=== PATIENT | female | born 1975 ===

== ENCOUNTER 2022-02-06 14:19 | Inpatient (IN) | payer SELFPAY ==
[2022-02-06] MEDS ORDERED: ONDANSETRON 4 MG/2 ML INJ IV ONE (16:10)
[2022-02-06] MEDS ORDERED: ACETAMINOPHEN 325 MG TAB PO ONE (16:10)
[2022-02-06] MEDS ORDERED: SODIUM CHLORIDE 0.9% 1000 ML 1,000 ML IV ONE (16:10)
--- NOTE | 2022-02-06 16:15 | Emergency Department Report ---
Chief Complaint: Abdominal Pain Stated Complaint: FEVER/VOMITTING/CHILLS Time Seen by Provider: 02/06/22 16:13 - HPI History of Present Illness: Few day history of worsening fever, chills, abdominal pain. - ROS Review of Systems: Complains of abdominal pain, body aches, fever, chills. - Exam Vital Signs: Vital Signs 02/06/22 16:08 Temperature 103.5 F H Pulse Rate 125 H Respiratory 22 Rate Blood Pressure 166/85 [Right] O2 Sat by Pulse 99 Oximetry Physical Exam: Abdominal tenderness to palpation. MSE screening note: Focused history and physical exam performed. Due to findings the following was ordered: CBC, CMP, lipase, UA, CT abdomen chest with contrast. 975 mg of Tylenol Patient to be seen by another provider when she gets a room. ED Disposition for MSE Condition: Stable Instructions: Abdominal Pain (ED)
[2022-02-06 16:49] LABS: Hematocrit 28.9 % (30.3-42.9); Hemoglobin 9.6 gm/dl (10.1-14.3); Mean Corpuscular HGB Conc 33 % (30-34); Mean Corpuscular Volume 96 fl (79-97); Platelet Count 211 K/mm3 (140-440); Red Cell Distribution Width 15.8 % (13.2-15.2)
[2022-02-06 17:38] LABS: Alanine Aminotransferase 153 units/L (7-56); Albumin 3.4 g/dL (3.9-5); Blood Urea Nitrogen 5 mg/dL (7-17); Calcium 8.6 mg/dL (8.4-10.2); Hemolysis Index 8
[2022-02-06 17:41] LABS: BUN/Creatinine Ratio 8
--- NOTE | 2022-02-06 22:02 | Cat Scan Report ---
CT abdomen pelvis w con INDICATION / CLINICAL INFORMATION: Pt complains of severe abdominal pain.. TECHNIQUE: Axial CT images were obtained through the abdomen and pelvis after 100 cc of Omnipaque [address] scans at this location are performed using CT dose reduction for ALARA by means of automated exposure control. COMPARISON: None available. FINDINGS: There is bibasilar volume loss. Severe hepatic steatosis with hepatomegaly, measuring 26.5 cm. No foc al hepatic lesion. Gallbladder and bile ducts are unremarkable. The parenchyma of the pancreas is dim inutive. Large peripancreatic fluid collections, largest associated with the body and tail the pancreas measur ing 16.2 x 9.5 cm transaxially. This extends along the left paracolic gutter with component in the le ft lower abdomen measuring 10.6 x 10.3 cm transaxially (series 2 image 119). Overall, this measures 2 2.7 cm in craniocaudal dimension. There is additional peripancreatic collection at the head of the pa ncreas, measuring 10.4 x 4.6 cm transaxially with component extending along the right paracolic gutte r with component measuring 8.5 x 7.3 cm transaxially in the right abdomen (series 2 image 120). There is moderate volume free fluid within the pelvis, though this does not appear to be well encapsulated . There is focal narrowing at the portal vein confluence. The portal vein and remaining SMV are paten t. Splenic vein is not well seen, though also appears to be patent. Spleen is unremarkable. Adrenal g lands are unremarkable. No acute renal abnormality. No hydronephrosis. Bladder is unremarkable. Uterus/adnexa are appropriate for age. Stomach is unremarkable. Small bowel and colon demonstrate no evidence of mechanical obstruction or i nflammation. No acute osseous findings. IMPRESSION: 1. Large peripherally enhancing fluid collections with dominant collection surrounding the pancreas b tiara and tail and extending along left paracolic gutter with additional large collection involving the pancreatic head and extending along the right paracolic gutter, as above. These findings are favored to reflect large peripancreatic pseudocysts or acute peripancreatic collections. Sterility of this f inding is indeterminate. Recommend further evaluation with GI consultation. 2. Severe hepatic steatosis with hepatomegaly. 3. Other incidental findings as above. Findings were discussed with Dr. Pfeiffer by phone on 02/06/2022 at 8:57 PM Signer Name: Luis Spencer MD Signed: 02/06/2022 9:58 PM Workstation Name: [id number]
[2022-02-06] MEDS ORDERED: cefTRIAXone/NS 1 GM/50 ML 1 GM/50 ML BAG IV ONE (22:06)
[2022-02-06] MEDS ORDERED: SODIUM CHLORIDE 0.9% 1000 ML IV SOLN IV ONE (22:06)
[2022-02-06] MEDS ORDERED: ONDANSETRON 4 MG/2 ML INJ ONE (23:13)
--- NOTE | 2022-02-06 23:25 | XRay Report ---
XR chest 1V ap INDICATION / CLINICAL INFORMATION: Pain. COMPARISON: Same-day CT FINDINGS: SUPPORT DEVICES: None. HEART /PULMONARY VASCULATURE: No significant abnormality. LUNGS / PLEURA: Diminished lung volumes with streaky perihilar and bibasilar pulmonary opacities, lik chapo reflecting atelectasis. No sizable pleural effusion. No pneumothorax. ADDITIONAL FINDINGS: No significant additional findings. IMPRESSION: Diminished lung volumes with bibasilar atelectasis. No acute findings. Signer Name: Luis Spencer MD Signed: 02/06/2022 11:20 PM Workstation Name: [id number]
[2022-02-07 00:11] LABS: Bilirubin,Urine Negative (Negative); Blood,Urine Negative (Negative); Color,Urine Yellow (Yellow); Urobilinogen,Urine < 2.0 mg/dL (<2.0)
[2022-02-07] MEDS ORDERED: MORPHINE 4 MG/1 ML INJ IV PRN (01:21)
[2022-02-07] MEDS ORDERED: IBUPROFEN 600 MG TAB PO PRN (01:21)
[2022-02-07] MEDS ORDERED: MAGNESIUM HYDROXIDE (MOM) ORAL LIQD UDC PO PRN (01:21)
[2022-02-07] MEDS ORDERED: ONDANSETRON 4 MG/2 ML INJ IV PRN (01:21)
[2022-02-07] MEDS ORDERED: MORPHINE 2 MG/1 ML INJ IV PRN (01:21)
--- NOTE | 2022-02-07 01:30 | History and Physical Report ---
History of Present Illness Date of examination: 02/07/22 Date of admission: 02/07/2022 Chief complaint: Abdominal pain History of present illness: 46-year-old female with past medical history of hypertension, diabetes mellitus, pancreatitis and history of breast cancer in the past presenting to the emergency room today complaining of fever, nausea and vomiting with associated abdominal pain. Symptoms have been ongoing for the past 2 to 3 days. She denies any chest pain or shortness of breath, denies any headache or dizziness and denies any diaphoresis. Patient denies any bright red blood per rectum, no hematuria or dysuria. She denies any sick contacts and no recent travel. Upon arrival in the emergency room patient had a fever 103.5 F. Work-up in the emergency room, labs significant for elevated liver enzymes with AST of 542 and ALT of 153. 562. Urinalysis was unremarkable. Acute hepatitis profile so far negative. Chest x-ray reveals diminished lung volumes with bibasilar atelectasis. CT of the abdomen and pelvis however reveals: 1. Large peripherally enhancing fluid collections with dominant collection surrounding the pancreas body and tail and extending along left paracolic gutter with additional large collection involving the pancreatic head and extending along the right paracolic gutter, as above. These findings are favored to reflect large peripancreatic pseudocysts or acute peripancreatic collections. Sterility of this finding is indeterminate. Recommend further evaluation with GI consultation. 2. Severe hepatic steatosis with hepatomegaly. 3. Other incidental findings as above. Social Worker Masters on-call Dr. Guzman has been consulted by the ER physician regarding the above findings. Recommendation is to place patient on empiric IV antibiotics and patient will be reevaluated in the a.m. It would later be determined whether patient may need surgical intervention. Medications and Allergies Allergies Allergy/AdvReac Type Severity Reaction Status Date / Time No Known Allergies Allergy Verified 02/06/22 16:12 Review of Systems Constitutional: fever, chills Ears, nose, mouth and throat: no nasal congestion, no sore throat Cardiovascular: no chest pain, no palpitations Respiratory: no cough, no shortness of breath Gastrointestinal: abdominal pain, nausea, vomiting, no diarrhea, no melena Genitourinary Female: no flank pain, no dysuria, no hematuria Musculoskeletal: no neck pain, no low back pain Integumentary: no rash, no pruritis Neurological: no headaches, no confusion Psychiatric: no anxiety, no depression Endocrine: no polyphagia, no polydipsia, no polyuria Exam - Constitutional Vitals: Temp Pulse Resp BP Pulse Ox 102.0 F H 109 H 19 110/63 93 02/07/22 01:26 02/07/22 00:46 02/07/22 00:46 02/07/22 00:46 02/07/22 00:46 HEART Score - HEART Score Troponin: Troponin T < 0.010 ng/mL (0.00-0.029) 02/06/22 23:21 Results - Labs CBC & Chem 7: 02/06/22 16:33 02/06/22 16:33 Labs: Abnormal lab results 02/06/22 02/06/22 02/06/22 Range/Units 16:33 16:33 23:21 RBC 3.00 L (3.65-5.03) M/mm3 Hgb 9.6 L (10.1-14.3) gm/dl Hct 28.9 L (30.3-42.9) % RDW 15.8 H (13.2-15.2) % Sodium 135 L (137-145) mmol/L Potassium 3.1 L (3.6-5.0) mmol/L BUN 5 L (7-17) mg/dL Glucose 124 H (65-100) mg/dL AST 542 H (5-40) units/L ALT 153 H (7-56) units/L Alkaline Phosphatase 562 H (35-129) units/L Total Creatine Kinase (30-135) units/L NT-Pro-B Natriuret Pep 1636 H (0-450) pg/mL Total Protein 8.6 H (6.3-8.2) g/dL Albumin 3.4 L (3.9-5) g/dL Urine pH (5.0-7.0) Ur Specific [place] (1.003-1.030) 02/06/22 02/06/22 Range/Units 23:21 23:26 RBC (3.65-5.03) M/mm3 Hgb (10.1-14.3) gm/dl Hct (30.3-42.9) % RDW (13.2-15.2) % Sodium (137-145) mmol/L Potassium (3.6-5.0) mmol/L BUN (7-17) mg/dL Glucose (65-100) mg/dL AST (5-40) units/L ALT (7-56) units/L Alkaline Phosphatase (35-129) units/L Total Creatine Kinase 17 L (30-135) units/L NT-Pro-B Natriuret Pep (0-450) pg/mL Total Protein (6.3-8.2) g/dL Albumin (3.9-5) g/dL Urine pH 8.0 H (5.0-7.0) Ur Specific [place] 1.000 L (1.003-1.030) Assessment and Plan Assessment: 1. Abdominal pain-possibly secondary to peripancreatic pseudocyst as shown on CT abdomen 2. Nausea vomiting and diarrhea 3. Fever 4. Transaminitis Plan: 1. Patient admitted and placed on IV fluid and empiric IV antibiotics. 2. Consult already placed to plant cytologist for further evaluation and recommendations. 3. We will resume routine home medications once reconciled 4. Commenced on empiric IV antibiotics. 5. We will request surgical consult if needed. DVT prophylaxis: Subcutaneous heparin CODE STATUS: Full code
--- NOTE | 2022-02-07 01:50 | Emergency Department Report ---
ED Abdominal Pain HPI - General Chief Complaint: Abdominal Pain Stated Complaint: FEVER/VOMITTING/CHILLS Time Seen by Provider: 02/06/22 16:13 Source: patient Mode of arrival: Ambulatory Limitations: No Limitations - History of Present Illness Initial Comments: Pt reports abd pain since last night with fever and n/v. fever of 103.5 in triage. MD Complaint: abdominal pain -: Gradual, days(s) Location: diffuse Radiation: none Migration to: no migration Severity scale (0 -10): 4 Quality: aching Consistency: constant Improves With: nothing Worsens With: nothing - Related Data Allergies Allergy/AdvReac Type Severity Reaction Status Date / Time No Known Allergies Allergy Verified 02/06/22 16:12 ED Review of Systems ROS: Stated complaint: FEVER/VOMITTING/CHILLS Other details as noted in HPI Constitutional: denies: chills, fever Eyes: denies: eye pain, eye discharge, vision change ENT: denies: ear pain, throat pain Respiratory: denies: cough, shortness of breath, wheezing Cardiovascular: denies: chest pain, palpitations Endocrine: no symptoms reported Gastrointestinal: denies: abdominal pain, nausea, diarrhea Genitourinary: denies: urgency, dysuria, discharge Musculoskeletal: denies: back pain, joint swelling, arthralgia Skin: denies: rash, lesions Neurological: denies: headache, weakness, paresthesias Psychiatric: denies: anxiety, depression Hematological/Lymphatic: denies: easy bleeding, easy bruising ED Past Medical Hx - Past Medical History Hx Hypertension: Yes Hx Diabetes: Yes Hx of Cancer: Yes (Breast) Additional medical history: Pancreatitis - Surgical History Additional Surgical History: mastectomy left brest, ED Physical Exam - General Limitations: No Limitations General appearance: alert, in distress - Head Head exam: Present: atraumatic, normocephalic - Eye Eye exam: Present: normal appearance - ENT ENT exam: Present: mucous membranes moist - Neck Neck exam: Present: normal inspection - Respiratory Respiratory exam: Present: normal lung sounds bilaterally. Absent: respiratory distress - Cardiovascular Cardiovascular Exam: Present: normal rhythm, tachycardia. Absent: systolic murmur, diastolic murmur, rubs, gallop - GI/Abdominal GI/Abdominal exam: Present: soft, tenderness, normal bowel sounds, hyperactive bowel sounds. Absent: guarding, rebound - Extremities Exam Extremities exam: Present: normal inspection - Back Exam Back exam: Present: normal inspection - Neurological Exam Neurological exam: Present: alert, oriented X3 - Psychiatric Psychiatric exam: Present: normal affect, normal mood - Skin Skin exam: Present: warm, dry, intact, normal color. Absent: rash ED Course Vital Signs 02/06/22 02/06/22 02/06/22 16:08 23:03 23:16 Temperature 103.5 F H Pulse Rate 125 H 115 H Respiratory 22 26 H Rate Blood Pressure 132/76 Blood Pressure 166/85 [Right] O2 Sat by Pulse 99 94 91 Oximetry 02/06/22 02/06/22 02/07/22 23:30 23:46 00:00 Temperature Pulse Rate 110 H 111 H 109 H Respiratory 24 23 24 Rate Blood Pressure 126/79 126/79 123/74 Blood Pressure [Right] O2 Sat by Pulse 98 91 89 Oximetry 02/07/22 02/07/22 02/07/22 00:16 00:30 00:46 Temperature Pulse Rate 108 H 106 H 109 H Respiratory 25 H 20 19 Rate Blood Pressure 123/74 110/63 110/63 Blood Pressure [Right] O2 Sat by Pulse 92 83 L 93 Oximetry 02/07/22 02/07/22 01:26 01:28 Temperature 102.0 F H Pulse Rate Respiratory Rate Blood Pressure Blood Pressure [Right] O2 Sat by Pulse 96 Oximetry ED Medical Decision Making - Lab Data Result diagrams: 02/06/22 16:33 02/06/22 16:33 - Radiology Data Radiology results: report reviewed, image reviewed - Medical Decision Making fever control , sepsis work up fluids pain meds nausea meds abx started cultures taken, CT scan discussed with radiologist and Dr Thomas ARREOLA, will admit for obs Critical care attestation.: If time is entered above; I have spent that time in minutes in the direct care of this critically ill patient, excluding procedure time. ED Disposition Clinical Impression: Abdominal pain, Transaminitis, Pancreatic pseudocyst/cyst, Fever Disposition: ADMITTED INPATIENT Is pt being admited?: No Does the pt Need Aspirin: No Condition: Stable Instructions: Abdominal Pain (ED)
[2022-02-07 02:20] LABS: Hepatitis B Surface Antigen Non-Reactive (Negative); Hepatitis C Virus Antibody Non-Reactive (NonReactive)
[2022-02-07] MEDS: PIPERACIL/TAZOBACTA 4.5/NS 100 4.5 GM/100 ML VIAL IV SCH ×3 (02:31→19:52)
[2022-02-07] MEDS: SODIUM CHLORIDE 0.9% 1000 ML 1,000 ML IV SCH (04:11)
[2022-02-07 04:35] LABS: Amphetamine Screen,Urine PRESUMPTIVE NEGATIVE; Benzodiazepines Screen,Urine PRESUMPTIVE NEGATIVE; Cannabinoid Screen,Urine PRESUMPTIVE NEGATIVE; Cocaine Screen,Urine PRESUMPTIVE NEGATIVE; Methadone Screen,Urine PRESUMPTIVE NEGATIVE; Opiate Screen,Urine PRESUMPTIVE NEGATIVE
[2022-02-07 04:43] LABS: C-Reactive Protein 0.8 mg/dL (0.00-1.30)
--- NOTE | 2022-02-07 08:00 | Gastroenterology Consultation ---
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 Upon arrival in the emergency room patient had a fever 103.5 F. Epigastric. Sharp. Was severe now mild to moderate, improving, constant, duration days, associate with nausea that is improved now. Was associated with chills and fevers. That is improved now. Was radiating to the back. Of note patient with recent diagnosis of hypertriglyceridemia induced acute pancreatitis, she was given medication to treat the hypertriglyceridemia and was discharged however she says she ran out of the medication shortly thereafter and has not followed up with any doctors yet. She said she does have an outpatient appointment with her regular doctor in the near future however Medical history: Dyslipidemia, breast cancer, hypertension, gestational diabetes, pancreatitis due to hypertriglyceridemia Surgical history: Left mastectomy 2019, section 1993 Family history: No family history of pancreaticobiliary disease Social history: Never smoker Allergies: No known drug allergies Obtained/updated/reviewed patient's current medications I have reviewed patient's chart from [employer] system, pertinent findings as below EGD 11/30/21 Dr Ok Nguyễn Findings: - Esophagus: unremarkable; no evidence or stigmata of bleeding - Stomach: Unremarkable gastric fundus, gastric body, gastric antrum and pylorus. - Duodenum: The duodenal bulb and second portion of the duodenum was unremarkable. LABS ALT 0 - 35 U/L 17 18 21 28 20 24 25 View Lab Flowsheet AST 14 - 36 U/L 26 24 32 37High 24 34 33 Component Latest Ref Rng & Units 05/25/2017 12/02/2017 11/16/2021 11/17/2021 TRIGLYCERIDES 10 - 149 mg/dL 770 (H) 416 (H) >1,575 (H) 850 (H) Component Latest Ref Rng & Units 11/18/2021 11/19/2021 11/20/2021 11/22/2021 TRIGLYCERIDES 10 - 149 mg/dL 587 (H) 428 (H) 473 (H) 429 (H) Component Latest Ref Rng & Units 11/23/2021 11/24/2021 11/25/2021 11/26/2021 TRIGLYCERIDES 10 - 149 mg/dL 352 (H) 394 (H) 409 (H) 323 (H) Component Latest Ref Rng & Units 11/27/2021 11/28/2021 o TRIGLYCERIDES 10 - 149 mg/dL 263 (H) 242 (H) Initial GI Consult 11/16/21 Emely Power a 46 y.o.femalewith PMH Type 2 DM, HTN, HLP, breast cancer (s/p left mastectomy and chemo) who presented to ER with progressively worsening generalized abdominal pain and associated non-bloody emesis. She was admitted with DKA, sepsis, COVID 19, and acute pancreatitis (for which GI was consulted). Acute Pancreatitis: -Likely 2/2 to hypertriglyceridemia with triglycerides >1575. Agree with insulin, and will be fibrates once TG<500 -NPO -IV fluids -Pain management per IMS Constipation: -Dulcolax suppositories and Miralax PRN Signed: Goldy Richard 11/16/2021 12:02 PM 46 y/o F with hx of DM II,breast cancer (s/p left mastectomy and chemo)admitted with DKA, COVID-19 with GI consulted for severe acute pancreatitis Elevated lipase with CT a/p showing severe acute pancreatitis, with possible early necrosis(vs edema). Triglycerides 1575, and likely the etiology. Mild elevated T.bili likely 2/2 sepsis, COVID with no biliary dilation on CT. ID consulted for question of abx -Hydration, pain control as per IMS. Okay to advance to [facility], with diet advancement as tolerated -Trend dailyTriglycerides. Agree with treatment of hypertriglyceridemia with insulin. Once triglycerides<500mg/dl recommend startingoral gemfibrozil 600 mg twice dailyto prevent recurrent episodes of HTGP(hypertriglyceridemia inducted pancreatitis) -F/u ID recs -Rest of management of DKA, COVID as per IMS I have independently interviewed/examined the patient. I performed over 50% of the evaluation and management of the patient. I discussed the case with the PA, who also saw and evaluated the patient. We discussed the case and I agree with the findings, and plan, as documented in the mid- level note as written above. Reviewed patient's current medications. . US Abd 12/01/21 IMPRESSION: No significant ascites seen CT a/p 11/23/21 IMPRESSION: Findings consistent with active pancreatitis. Mild interval increase in volume of ascites. CT Chest 11/25/21 IMPRESSION: 1. Bilateral pleural effusions with underlying consolidation. 2. Retroperitoneal heterogeneous findings possibly related to pancreatitis. This appears progressed from previous exam. Correlate with clinical and laboratory findings Doppler b/l LE IMPRESSION: No evidence of DVT in the bilateral lower extremity. Approved By: Phil Reddy 11/18/2021 ECHO 11/17/21 Procedure Details Procedure A complete two-dimensional transthoracic echocardiogram was performed. 07573 (2D, M-mode, full spectral and color flow Doppler) Patient status: inpatient. Patient location: patient bedside room 536. The study was technically difficult in quality. There were technical limitations during this study due to patient positioning and patient body habitus. Tachycardia was noted during the study. 3cc of Lumason was given to improve LV assessment and was injected in the right arm. HISTORY: ECHO ordered for elevated troponin; COVID-19 PNA; resp failure; DKA; sepsis; electrolyte derangements HT: 157.5 cm WT: 92.60 kg BSA: 1.93 m2 BP: 135 / 76 mmHg Imaging Contrast/Medications sulfur hexafluoride microspheres (LUMASON) injection 5 mL Given: 3 mL Intravenous Conclusions LVEF is 70%. 2D biplane LVEF assessed with contrast. LV systolic function is hyperdynamic. LV size is normal. Normal LV wall thickness. LV wall motion normal. Normal LV diastolic function. RV not well visualized. Normal biatrial size. No significant valvular disease. Unable to assess RV systolic pressure due to absence of tricuspid regurgitant signal. No pericardial effusion Unable to view previous echocardiogram from 05/31/[address] 11/15/21 FINDINGS: Please refer to dedicated CT of the chest, dated same day, for further analysis of intra-thoracic findings. Abdomen/Pelvis: Diffuse hypoattenuation of the liver compared to the spleen, keeping with sequela of hepatic steatosis. Liver is otherwise normal in size and contour. No intrahepatic or extrahepatic biliary ductal dilatation. No focal hepatic masses. No gallbladder wall thickening or para cholecystic fluid to suggest cholecystitis. No calcified gallstones. Spleen and bilateral adrenal glands are unremarkable. Significant peripancreatic inflammatory changes, concerning for acute pancreatitis. Focal area of pancreatic parenchymal hypoattenuation within the pancreatic body/tail (series 4, image 46), which could represent an area of early pancreatic ischemia/developing necrosis. Additionally, there is probable reactive fluid tracking within the bilateral upper quadrants, as well as within the bilateral paracolic gutters and pelvis. Of note, there is a mildly diminutive appearance of the celiac artery, superior mesenteric artery, and portal venous vasculature, which could represent reactive vasoconstriction given adjacent inflammatory changes. However, no focal arterial venous occlusion or other focal vascular abnormality is appreciated within these regions. No focal drainable fluid collection. No pancreatic pseudocyst is appreciated in this exam. Symmetric enhancement of bilateral kidneys, without hydronephrosis. No abnormal enhancing focal renal masses. Mucosal hyperenhancement of the duodenum, which could represent reactive inflammatory changes from adjacent pancreatitis. Bowel is otherwise normal in course and caliber, without obstruction. Imaged portions of the appendix are normal. Abdominal aorta is normal in course and caliber, without aneurysm. No large intra-abdominal free air. No pathologically enlarged mesenteric or retroperitoneal lymph nodes. Fluid-filled bladder, which is otherwise unremarkable. No pelvic masses. No pelvic or inguinal lymphadenopathy. Bones/Soft Tissues: Multilevel degenerative changes are noted within the lumbar spine. No acute osseous abnormalities. No worrisome lytic or sclerotic lesions. Overlying soft tissues are unremarkable. IMPRESSION: 1. Findings in keeping with sequela of severe acute pancreatitis, as described above, with a focal area of possible early pancreatic parenchyma necrosis within the body/tail of the pancreas. No pancreatic or peripancreatic drainable fluid collection is noted this time. Attention on follow-up. 2. Mildly diminutive appearance of the celiac artery, superior mesenteric artery, and portal venous vasculature, which could represent reactive vasoconstriction given the adjacent inflammatory changes of the pancreas. 3. Findings in keeping with hepatic steatosis. Obtained/updated/reviewed patient's current medications Medications and Allergies Allergies Allergy/AdvReac Type Severity Reaction Status Date / Time No Known Allergies Allergy Verified 02/06/22 16:12 Active Meds: Active Medications Sodium Chloride (Nacl 0.9% 1000 Ml) 1,000 mls @ 125 mls/hr IV DIRECT AZAR Last Admin: 02/07/22 04:11 Dose: 125 mls/hr Piperacillin Sod/Tazobactam Sod (Zosyn/Ns 4.5gm/100ml) 4.5 gm in 100 mls @ 200 mls/hr IV Q8H AZAR; Protocol Last Admin: 02/07/22 02:31 Dose: 200 mls/hr Ibuprofen (Ibuprofen 600 Mg Tab) 600 mg PO Q6H PRN PRN Reason: Pain, Mild (1-3) Magnesium Hydroxide (Magnesium Hydroxide (Mom) Oral Liqd Udc) 30 ml PO Q4H PRN PRN Reason: Constipation Morphine Sulfate (Morphine 2 Mg/1 Ml Inj) 2 mg IV Q4H PRN PRN Reason: Pain, Moderate (4-6) Morphine Sulfate (Morphine 4 Mg/1 Ml Inj) 4 mg IV Q4H PRN PRN Reason: Pain , Severe (7-10) Last Admin: 02/07/22 02:31 Dose: 4 mg Ondansetron HCl (Ondansetron 4 Mg/2 Ml Inj) 4 mg IV Q8H PRN PRN Reason: Nausea And Vomiting Sodium Chloride (Sodium Chloride 0.9% 10 Ml Flush Syringe) 10 ml IV BID AZAR Sodium Chloride (Sodium Chloride 0.9% 10 Ml Flush Syringe) 10 ml IV PRN PRN PRN Reason: LINE FLUSH Review of Systems - Review of Systems All systems: negative (10 Systems reviewed and negative except as mentioned above in the history of present illness) Exam - Constitutional Vital Signs: Temp Pulse Resp BP Pulse Ox 97.8 F 82 20 103/65 97 02/07/22 05:01 02/07/22 05:01 02/07/22 05:01 02/07/22 05:01 02/07/22 05:01 General appearance: no acute distress - EENT Eyes: EOM intact - Neck Neck: supple - Respiratory Respiratory effort: normal - Cardiovascular Rhythm: regular - Gastrointestinal General gastrointestinal: Present: soft, tender, normal bowel sounds - Integumentary Integumentary: Present: dry - Musculoskeletal Musculoskeletal: normal - Neurologic Neurological: alert and oriented x3 - Psychiatric Psychiatric: appropriate mood/affect - Labs CBC & Chem 7: 02/06/22 16:33 02/06/22 16:33 Lab Results: Laboratory Results - last 24 hr 02/06/22 02/06/22 02/06/22 16:33 16:33 16:33 WBC 6.7 RBC 3.00 L Hgb 9.6 L Hct 28.9 L MCV 96 MCH 32 MCHC 33 RDW 15.8 H Plt Count 211 Sodium 135 L Potassium 3.1 L Chloride 98.2 Carbon Dioxide 22 Anion Gap 18 BUN 5 L Creatinine 0.6 Estimated GFR > 60 BUN/Creatinine Ratio 8 Glucose 124 H POC Glucose Lactic Acid 1.90 Calcium 8.6 Total Bilirubin 0.60 AST 542 H ALT 153 H Alkaline Phosphatase 562 H Total Creatine Kinase Troponin T C-Reactive Protein NT-Pro-B Natriuret Pep Total Protein 8.6 H Albumin 3.4 L Albumin/Globulin Ratio 0.7 Lipase 29 Urine Color Urine Turbidity Urine pH Ur Specific [place] Urine Protein Urine Glucose (UA) Urine Ketones Urine Blood Urine Nitrite Ur Reducing Substances Urine Bilirubin Urine Ictotest Urine Urobilinogen Ur Leukocyte Esterase Urine WBC (Auto) Urine RBC (Auto) U Epithel Cells (Auto) Urine Opiates Screen Urine Methadone Screen Ur Barbiturates Screen Ur Phencyclidine Scrn Ur Amphetamines Screen U Benzodiazepines Scrn Urine Cocaine Screen U Marijuana (THC) Screen Drugs of Abuse Note Hepatitis A IgM Ab Hep Bs Antigen Hep B Core IgM Ab Hepatitis C Antibody 02/06/22 02/06/22 02/06/22 23:21 23:21 23:21 WBC RBC Hgb Hct MCV MCH MCHC RDW Plt Count Sodium Potassium Chloride Carbon Dioxide Anion Gap BUN Creatinine Estimated GFR BUN/Creatinine Ratio Glucose POC Glucose Lactic Acid 0.70 Calcium Total Bilirubin AST ALT Alkaline Phosphatase Total Creatine Kinase Troponin T < 0.010 C-Reactive Protein NT-Pro-B Natriuret Pep 1636 H Total Protein Albumin Albumin/Globulin Ratio Lipase Urine Color Urine Turbidity Urine pH Ur Specific [place] Urine Protein Urine Glucose (UA) Urine Ketones Urine Blood Urine Nitrite Ur Reducing Substances Urine Bilirubin Urine Ictotest Urine Urobilinogen Ur Leukocyte Esterase Urine WBC (Auto) Urine RBC (Auto) U Epithel Cells (Auto) Urine Opiates Screen Urine Methadone Screen Ur Barbiturates Screen Ur Phencyclidine Scrn Ur Amphetamines Screen U Benzodiazepines Scrn Urine Cocaine Screen U Marijuana (THC) Screen Drugs of Abuse Note Hepatitis A IgM Ab Hep Bs Antigen Hep B Core IgM Ab Hepatitis C Antibody 02/06/22 02/06/22 02/06/22 23:21 23:26 23:26 WBC RBC Hgb Hct MCV MCH MCHC RDW Plt Count Sodium Potassium Chloride Carbon Dioxide Anion Gap BUN Creatinine Estimated GFR BUN/Creatinine Ratio Glucose POC Glucose Lactic Acid Calcium Total Bilirubin AST ALT Alkaline Phosphatase Total Creatine Kinase 17 L Troponin T C-Reactive Protein 0.80 NT-Pro-B Natriuret Pep Total Protein Albumin Albumin/Globulin Ratio Lipase Urine Color Yellow Urine Turbidity Clear Urine pH 8.0 H Ur Specific [place] 1.000 L Urine Protein 30 mg/dl Urine Glucose (UA) Negative Urine Ketones Trace Urine Blood Negative Urine Nitrite Negative Ur Reducing Substances Not Reportable Urine Bilirubin Negative Urine Ictotest Not Reportable Urine Urobilinogen < 2.0 Ur Leukocyte Esterase Negative Urine WBC (Auto) 1.0 Urine RBC (Auto) 2.0 U Epithel Cells (Auto) 6.0 Urine Opiates Screen Presumptive negative Urine Methadone Screen Presumptive negative Ur Barbiturates Screen Presumptive negative Ur Phencyclidine Scrn Presumptive negative Ur Amphetamines Screen Presumptive negative U Benzodiazepines Scrn Presumptive negative Urine Cocaine Screen Presumptive negative U Marijuana (THC) Screen Presumptive negative Drugs of Abuse Note Disclamer Hepatitis A IgM Ab Hep Bs Antigen Hep B Core IgM Ab Hepatitis C Antibody 02/07/22 02/07/22 01:02 07:53 WBC RBC Hgb Hct MCV MCH MCHC RDW Plt Count Sodium Potassium Chloride Carbon Dioxide Anion Gap BUN Creatinine Estimated GFR BUN/Creatinine Ratio Glucose POC Glucose 93 Lactic Acid Calcium Total Bilirubin AST ALT Alkaline Phosphatase Total Creatine Kinase Troponin T C-Reactive Protein NT-Pro-B Natriuret Pep Total Protein Albumin Albumin/Globulin Ratio Lipase Urine Color Urine Turbidity Urine pH Ur Specific [place] Urine Protein Urine Glucose (UA) Urine Ketones Urine Blood Urine Nitrite Ur Reducing Substances Urine Bilirubin Urine Ictotest Urine Urobilinogen Ur Leukocyte Esterase Urine WBC (Auto) Urine RBC (Auto) U Epithel Cells (Auto) Urine Opiates Screen Urine Methadone Screen Ur Barbiturates Screen Ur Phencyclidine Scrn Ur Amphetamines Screen U Benzodiazepines Scrn Urine Cocaine Screen U Marijuana (THC) Screen Drugs of Abuse Note Hepatitis A IgM Ab Non-reactive Hep Bs Antigen Non-reactive Hep B Core IgM Ab Non-reactive Hepatitis C Antibody Non-reactive Assessment and Plan Regarding the patient's acute pain, unclear etiology however this is not clinically consistent with acute infected pancreatic necrosis both in terms of her presentation as well as the timeframe since the last episode of acute pancreatitis. Therefore suspect more likely recurrent bout of pancreatitis. Recommend checking triglyceride levels. Regardless, patient symptoms are starting to improve Regarding the patient's large pancreatic cysts, does not appear clinically infected, and patient has been doing okay clinically prior to today's presentation or at this juncture treatment of the cyst with surgical in tervention risks outweigh benefits, would recommend intervention if cyst becomes symptomatic Regarding elevation of liver enzymes, I do not have a good reason for that as her baseline AST and ALT were normal. It is possible patient also had gallstone that passed which might also explain the patient's symptoms, will order MRCP to be thorough Acute hep panel negative From GI standpoint patient may be on a low-fat diet I will continue to follow with you - Patient Problems (1) Abdominal pain Current Visit: Yes Status: Acute (2) Fever Current Visit: Yes Status: Acute (3) Transaminitis Current Visit: Yes Status: Acute (4) Hypertriglyceridemia Current Visit: Yes Status: Acute (5) Pancreatic pseudocyst/cyst Current Visit: Yes Status: Acute
--- NOTE | 2022-02-07 15:10 | Magnetic Resonance Report ---
MR ABDOMEN MRCP HISTORY: Pancreatitis, abnormal liver function tests, rule out choledocholithiasis TECHNIQUE: Axial and coronal T2 fat sat. Thin coronal MRCP images. Radial MRCP images. COMPARISON: CT abdomen pelvis with contrast 02/06/2022 FINDINGS: The MRCP images demonstrate a mild amount of debris within the bladder consistent with sludge. No shayy id gallstones are detected. There is mild central biliary dilatation. The common bile duct measures 6 .3 mm. The common hepatic duct measures 8.4 mm. There is smooth tapering of the distal common bile du ct near the ampulla. There is no evidence for malignant stricture or choledocholithiasis. The distal common bile duct appears mildly compressed at the level of the pancreatic head which is probably seco ndary to diffuse pancreatic inflammation. The pancreatic duct is unremarkable. Severe inflammatory changes involving the pancreas are evident. There is a large, complex fluid colle ction surrounding the pancreatic body and tail measuring up to 14 x 8 cm in axial plane. Fluid collec tions also dissect into the right subhepatic space and left paracolic gutter. These are consistent wi th complex multiloculated pseudocyst which have not significantly changed since the previous CT. Mild hepatomegaly with diffuse fatty infiltration is again noted. The spleen, kidneys, adrenal glands and visualized bowel loops are unremarkable. The vascular structures are patent. Trace left pleural effusion has developed. IMPRESSION: There is a small amount of sludge in the gallbladder but no evidence for cholelithiasis or choledocho lithiasis. Hepatomegaly with diffuse fatty infiltration. Severe pancreatitis with large pancreatic pseudocysts throughout the abdomen as described. Trace left pleural effusion. Signer Name: Colt Cheng Jr, MD Signed: 02/07/2022 3:05 PM Workstation Name: [id number]
--- NOTE | 2022-02-07 16:07 | Event Note ---
Date: 02/07/22 Patient seen and examined, this is the second visit after midnight Patient presented with abdominal pain and CT abdomen pelvis suggestive for panc reatic pseudocyst Pain significantly improved, no nausea or vomiting today GI following the patient, will start on clear liquid diet, will replete potassium and follow BMP
--- NOTE | 2022-02-07 17:57 | Electrocardiograph Report ---
[facility] Test Date: 2022-02-07 Test Time: 08:25:01 Pat Name: ASHLI CARRERA Department: Room: A384 1 Gender: F Hog Dropper: JOE : 1975 Requested By: RADHA GAN Order Number: [id number] Reading MD: Jonathan Mejia Measurements Intervals [place] Rate: 79 P: 42 AL: 171 QRS: 41 QRSD: 88 T: 55 QT: 386 QTc: 443 Interpretive Statements Sinus rhythm No previous ECG available for comparison Electronically Signed On 02-07-2022 17:56:52 EDT by Jonathan Mejia
[2022-02-08] MEDS: SODIUM CHLORIDE 0.9% 1000 ML 1,000 ML IV SCH ×2 (03:00→11:34)
[2022-02-08] MEDS: PIPERACIL/TAZOBACTA 4.5/NS 100 4.5 GM/100 ML VIAL IV SCH ×2 (03:04→09:26)
[2022-02-08 05:52] LABS: Basophils % (Auto) 0.6 % (0.0-1.8); Eosinophils # (Auto) 0.1 K/mm3 (0.0-0.4); Hematocrit 26.4 % (30.3-42.9); Hemoglobin 8.5 gm/dl (10.1-14.3); Lymphocytes # (Auto) 2.3 K/mm3 (1.2-5.4); Lymphocytes % (Auto) 47.5 % (13.4-35.0); Mean Corpuscular HGB Conc 32 % (30-34); Mean Corpuscular Volume 97 fl (79-97); Monocytes # (Auto) 0.5 K/mm3 (0.0-0.8); Monocytes % (Auto) 10.5 % (0.0-7.3); Platelet Count 163 K/mm3 (140-440); Red Blood Count 2.71 M/mm3 (3.65-5.03); Red Cell Distribution Width 15.9 % (13.2-15.2)
[2022-02-08 06:06] LABS: Blood Urea Nitrogen 5 mg/dL (7-17); Calcium 7.8 mg/dL (8.4-10.2); Hemolysis Index 5
[2022-02-08 06:19] LABS: BUN/Creatinine Ratio 10
--- NOTE | 2022-02-08 10:34 | Gastroenterology Progress Note ---
Assessment and Plan Regarding the patient's acute pain more likely recurrent bout of pancreatitis. Recommend checking triglyceride levels (ordered). Regardless, patient symptoms are better so no antibiotics nor surgery indicated Regarding the patient's large pancreatic cysts, does not appear clinically infected, and patient is currently asymptomatic; treatment of the cyst with surgical intervention risks outweigh benefits, frequently even with large ps eudocysts there is spontaneous resolution over 3-6 months Regarding elevation of liver enzymes, I do not have a good reason for that as her baseline AST and ALT were normal. It is possible patient also had gallstone that passed which might also explain the patient's symptoms, but MRCP neg for choledocholithiasis or biliary obstruction due to extrinsic compression from pancreatic pseudocyst. Acute hep panel negative I ordered repeat LFT, not resulted yet today If triglycerides are improved and liver enzymes improving then patient can be discharged tomorrow with outpatient followup as long as she remains asymptomatic - Patient Problems (1) Abdominal pain Current Visit: Yes Status: Acute (2) Fever Current Visit: Yes Status: Acute (3) Transaminitis Current Visit: Yes Status: Acute (4) Hypertriglyceridemia Current Visit: Yes Status: Acute (5) Pancreatic pseudocyst/cyst Current Visit: Yes Status: Acute Subjective Date of service: 02/08/22 Principal diagnosis: acute pancreatitis Interval history: pt reports feeling better no abd pain tolerating diet no nausea MRCP results noted Objective - Constitutional Vitals: Temp Pulse Resp BP Pulse Ox 98.2 F 89 20 128/81 96 02/07/22 09:45 02/07/22 23:57 02/07/22 23:57 02/07/22 09:45 02/08/22 04:00 General appearance: no acute distress - EENT Eyes: EOM intact ENT: hearing intact - Neck Neck: supple - Respiratory Respiratory effort: normal - Cardiovascular Rhythm: regular - Gastrointestinal General gastrointestinal: Present: soft, non-tender - Integumentary Integumentary: Present: dry - Neurologic Neurological: alert and oriented x3 - Psychiatric Psychiatric: appropriate mood/affect - Labs CBC & Chem 7: 02/08/22 04:55 02/08/22 04:55 Labs: Laboratory Results - last 24 hr 02/07/22 02/07/22 02/07/22 11:04 15:44 21:20 WBC RBC Hgb Hct MCV MCH MCHC RDW Plt Count Lymph % (Auto) Barren % (Auto) Eos % (Auto) Baso % (Auto) Lymph # (Auto) Barren # (Auto) Eos # (Auto) Baso # (Auto) Seg Neutrophils % Seg Neutrophils # Sodium Potassium Chloride Carbon Dioxide Anion Gap BUN Creatinine Estimated GFR BUN/Creatinine Ratio Glucose POC Glucose 85 88 82 Calcium 02/08/22 02/08/22 02/08/22 04:55 04:55 07:56 WBC 4.8 RBC 2.71 L Hgb 8.5 L Hct 26.4 L MCV 97 MCH 31 MCHC 32 RDW 15.9 H Plt Count 163 Lymph % (Auto) 47.5 H Barren % (Auto) 10.5 H Eos % (Auto) 2.0 Baso % (Auto) 0.6 Lymph # (Auto) 2.3 Barren # (Auto) 0.5 Eos # (Auto) 0.1 Baso # (Auto) 0.0 Seg Neutrophils % 39.4 L Seg Neutrophils # 1.9 Sodium 139 Potassium 3.1 L Chloride 106.3 Carbon Dioxide 25 Anion Gap 11 BUN 5 L Creatinine 0.5 L Estimated GFR > 60 BUN/Creatinine Ratio 10 Glucose 90 POC Glucose 73 Calcium 7.8 L
[2022-02-08] MEDS: POTASSIUM CHLORIDE 10 MEQ 10 MEQ/100 ML BAG IV SCH ×3 (11:27→13:52)
[2022-02-08] MEDS: POTASSIUM CHLORIDE ER 10 MEQ TAB PO SCH (11:38)
--- NOTE | 2022-02-08 15:19 | Progress Note ---
Assessment and Plan 46-year-old female with past medical history of hypertension, diabetes mellitus, pancreatitis and history of breast cancer in the past presenting to the emergency room complaining of fever, nausea and vomiting with associated abdominal pain. Upon arrival in the emergency room patient had a fever 103.5 F. Work-up in the emergency room, labs significant for elevated liver enzymes with AST of 542 and ALT of 153. 562. Urinalysis was unremarkable. Acute hepatitis profile so far negative. Chest x-ray reveals diminished lung volumes with bibasilar atelectasis. CT of the abdomen and pelvis however reveals: 1. Large peripherally enhancing fluid collections with dominant collection surrounding the pancreas body and tail and extending along left paracolic gutter with additional large collection involving the pancreatic head and extending along the right paracolic gutter, as above. These findings are favored to reflect large peripancreatic pseudocysts or acute peripancreatic collections. Sterility of this finding is indeterminate. Recommend further evaluation with GI consultation. 2. Severe hepatic steatosis with hepatomegaly. 3. Other incidental findings as above. Cloud Engineer on-call Dr. Guzman has been consulted by the ER physician regarding the above findings and she was admitted for further Mx. A/P 1. Abdominal pain-possibly secondary to peripancreatic pseudocyst as shown on CT abdomen 2. Nausea vomiting and diarrhea, resolved 3. Fever likely from SIRS 4. Transaminitis Plan: -- placed on IV fluid and empiric IV antibiotics. d/c abx today as blood cx negative consulted GI, follow LFT, noted MRCP results if remains afebrile and LFT trending down will dc home in the morning cont to advance diet as tolerated DVT prophylaxis: Subcutaneous heparin CODE STATUS: Full code Subjective Date of service: 02/08/22 Principal diagnosis: acute pancreatitis Interval history: Patient seen and examined. Medical records and medication list reviewed. No acute event overnight noted by the RN. Patient denies any chest pain or difficulty breathing. Abdominal pain much improved, patient is tolerating clear liquid diet. Discussed plan of care at bedside with patient. Objective - Exam Narrative Exam: GENERAL: well-developed and obese female lying on bed appeared to be in no discomfort. HEENT: Normocephalic. Atraumatic. No conjunctival congestion or icterus. Patient has moist mucous membranes. NECK: Supple. Trachea midline. CHEST/LUNGS: Clear to auscultated bilaterally, breathing nonlabored. No wheezes crackles or rhonchi. HEART/CARDIOVASCULAR: Regular in rate and rhythm. S1 and S2 positive. ABDOMEN: Abdomen is soft, mild epigastric tender. Patient has normal bowel sounds. SKIN: There is no rash. Warm and dry. NEURO: No focal motor deficit. Follows command. MUSCULOSKELETAL: No joint effusion or tenderness. EXTRIMITY: No edema, no cyanosis or clubbing. PSYCH: Cooperative. - Constitutional Vitals: Vital Signs - 12hr 02/08/22 02/08/22 02/08/22 04:00 12:27 13:57 Respiratory 18 Rate O2 Sat by Pulse 96 96 Oximetry - Labs CBC & Chem 7: 02/08/22 04:55 02/09/22 10:41 Labs: Abnormal lab results 02/08/22 02/08/22 Range/Units 04:55 04:55 RBC 2.71 L (3.65-5.03) M/mm3 Hgb 8.5 L (10.1-14.3) gm/dl Hct 26.4 L (30.3-42.9) % RDW 15.9 H (13.2-15.2) % Lymph % (Auto) 47.5 H (13.4-35.0) % [place] % (Auto) 10.5 H (0.0-7.3) % Seg Neutrophils % 39.4 L (40.0-70.0) % Potassium 3.1 L (3.6-5.0) mmol/L BUN 5 L (7-17) mg/dL Creatinine 0.5 L (0.6-1.2) mg/dL Calcium 7.8 L (8.4-10.2) mg/dL HEART Score - HEART Score Troponin: Troponin T < 0.010 ng/mL (0.00-0.029) 02/06/22 23:21
[2022-02-09 06:06] LABS: Alanine Aminotransferase 69 units/L (7-56); Albumin 2.5 g/dL (3.9-5)
[2022-02-09 06:11] LABS: Bilirubin,Direct < 0.2 mg/dL (0-0.2)
--- NOTE | 2022-02-09 09:56 | Gastroenterology Progress Note ---
Assessment and Plan Regarding the patient's acute pain, fully resolved, more likely recurrent bout of pancreatitis. regarding etiology, either gallstone related (has GB sludge) vs related to prior episode due to elevated triglycerides. Can consider elective cholecystectomy to be done empirically Regarding the patient's large pancreatic cysts, does not appear clinically infected, and patient is currently asymptomatic; treatment of the cyst with surgical intervention risks outweigh benefits, frequently even with large pseudocysts there is spontaneous resolution over 3-6 months. Therefore patient just follow-up with us as an outpatient Regarding elevation of liver enzymes, they are improving, differential diagnosis includes choledocholithiasis which passed, but MRCP neg for choledocholithiasis; or biliary obstruction due to extrinsic compression from pancreatic pseudocyst. Patient stable for discharge with outpatient follow-up from GI standpoint - Patient Problems (1) Abdominal pain Current Visit: Yes Status: Acute (2) Fever Current Visit: Yes Status: Acute (3) Transaminitis Current Visit: Yes Status: Acute (4) Hypertriglyceridemia Current Visit: Yes Status: Acute (5) Pancreatic pseudocyst/cyst Current Visit: Yes Status: Acute Subjective Date of service: 02/09/22 Principal diagnosis: acute pancreatitis Interval history: pt reports feeling well no abd pain tolerating diet no nausea MRCP results noted LFT trending down normal trig Objective - Constitutional Vitals: Temp Pulse Resp BP Pulse Ox 99.7 F H 84 18 129/84 98 02/08/22 17:19 02/08/22 17:19 02/08/22 17:19 02/08/22 17:19 02/09/22 04:00 General appearance: no acute distress - EENT Eyes: EOM intact ENT: hearing intact - Neck Neck: supple - Respiratory Respiratory effort: normal - Gastrointestinal General gastrointestinal: Present: soft, non-tender - Labs CBC & Chem 7: 02/08/22 04:55 02/08/22 04:55 Labs: Laboratory Results - last 24 hr 02/08/22 02/08/22 02/08/22 11:10 16:04 21:16 POC Glucose 79 77 90 Total Bilirubin Direct Bilirubin Indirect Bilirubin AST ALT Alkaline Phosphatase Total Protein Albumin Albumin/Globulin Ratio Triglycerides 02/09/22 02/09/22 05:07 08:01 POC Glucose 80 Total Bilirubin 0.30 Direct Bilirubin < 0.2 Indirect Bilirubin 0.1 AST 193 H ALT 69 H Alkaline Phosphatase 393 H Total Protein 6.8 D Albumin 2.5 L Albumin/Globulin Ratio 0.6 Triglycerides 145
[2022-02-09] MEDS: POTASSIUM CHLORIDE ER 10 MEQ TAB PO SCH (10:57)
[2022-02-09 11:48] LABS: Blood Urea Nitrogen 2 mg/dL (7-17); Calcium 8.1 mg/dL (8.4-10.2); Hemolysis Index 4
[2022-02-09 11:51] LABS: BUN/Creatinine Ratio 4
--- NOTE | 2022-02-09 13:30 | Discharge Summary ---
Providers - Providers Date of Admission: 02/07/22 01:21 Date of discharge: 02/09/22 Attending physician: ROSENDO POLLARD 02/07/22 00:27 Consult to Physician [CONS] Stat Comment: Consulting Provider: MINH GUZMAN Physician Instructions: Reason For Exam: heaptitis 02/07/22 07:26 Consult to Case Management [CONS] Routine Services Needed at Discharge: Physician Pediatrician Notified:: n/a Primary care physician: PIEDAD GUEVARA Hospitalization Condition: Stable Hospital course: 46-year-old female with past medical history of hypertension, diabetes mellitus, pancreatitis and history of breast cancer in the past presenting to the emergency room complaining of fever, nausea and vomiting with associated abdominal pain. Upon arrival in the emergency room patient had a fever 103.5 F. Work-up in the emergency room, labs significant for elevated liver enzymes with AST of 542 and ALT of 153. 562. Urinalysis was unremarkable. Acute hepatitis profile so far negative. Chest x-ray reveals diminished lung volumes with bibasilar atelectasis. CT of the abdomen and pelvis however reveals: 1. Large peripherally enhancing fluid collections with dominant collection surrounding the pancreas body and tail and extending along left paracolic gutter with additional large collection involving the pancreatic head and extending along the right paracolic gutter, as above. These findings are favored to reflect large peripancreatic pseudocysts or acute peripancreatic collections. Sterility of this finding is indeterminate. Recommend further evaluation with GI consultation. 2. Severe hepatic steatosis with hepatomegaly. 3. Other incidental findings as above. Med Spa Manager on-call Dr. Guzman has been consulted by the ER physician regarding the above findings and she was admitted for further Mx. -- placed on IV fluid and empiric IV antibiotics. d/c abx as blood cx negative consulted GI, followed LFT, noted MRCP results MRCP neg for choledocholithiasis; or biliary obstruction due to extrinsic compression from pancreatic pseudocyst. remains afebrile and LFT trending down will dc home in the morning cont to advance diet as tolerated Disposition: HOME / SELF CARE / HOMELESS Final Discharge Diagnosis (Prints w/discharge instructions): 1. Abdominal pain- possibly secondary to peripancreatic pseudocyst as shown on CT abdomen. 2. Nausea vomiting and diarrhea, resolved. 3. Fever likely from SIRS. 4. Transaminitis, improved Time spent for discharge: 34 minutes Core Measure Documentation - Palliative Care Palliative Care/ Comfort Measures: Not Applicable - Core Measures Any of the following diagnoses?: none Exam - Physical Exam Narrative exam: GENERAL: well-developed and obese female lying on bed appeared to be in no discomfort. HEENT: Normocephalic. Atraumatic. No conjunctival congestion or icterus. Patient has moist mucous membranes. NECK: Supple. Trachea midline. CHEST/LUNGS: Clear to auscultated bilaterally, breathing nonlabored. No wheezes crackles or rhonchi. HEART/CARDIOVASCULAR: Regular in rate and rhythm. S1 and S2 positive. ABDOMEN: Abdomen is soft, no epigastric tender. Patient has normal bowel sounds. SKIN: There is no rash. Warm and dry. NEURO: No focal motor deficit. Follows command. MUSCULOSKELETAL: No joint effusion or tenderness. EXTRIMITY: No edema, no cyanosis or clubbing. PSYCH: Cooperative. - Constitutional Vitals: Temp Pulse Resp BP Pulse Ox 99.7 F H 84 18 129/84 98 02/08/22 17:19 02/08/22 17:19 02/08/22 17:19 02/08/22 17:19 02/09/22 04:00 Plan Activity: advance as tolerated Weight Bearing Status: Weight Bear as Tolerated Diet: advance as tolerated Follow up with: PIEDAD GUEVARA MD [Primary Care Provider] - 7 Days EDD KAT MD [Staff Physician] - 7 Days
[2022-02-09 18:03] VITALS: BP 135/85
== END 2022-02-09 18:41 | disposition home or self-care (01) | DRG 439 ==
LOC: ED 14:19 → 3A 02-07 01:21
PROVIDERS: ADMIT Internal Medicine Geriatric Medicine; ATTEND Internal Medicine
DX: K86.3 Pseudocyst of pancreas (principal); R65.10 Systemic inflammatory response syndrome (SIRS) of non-infectious origin without acute organ dysfunction; R74.8 Abnormal levels of other serum enzymes; R10.9 Unspecified abdominal pain; E78.1 Pure hyperglyceridemia
CPT/HCPCS: 36415; 71045; 74177; 74181; 80048; 80053; 80074; 80076; 80307; 81001; 82140; 82550; 82962; 83690; 83880; 84478; 84484; 85025; 85027; 86140; 87040; 93005; G0378; J0696; J2270; J2405; J2543; J3480; J7030; Q9967